=== PATIENT | male | born 1960 | race Caucasian/White ===

== ENCOUNTER 2020-12-16 13:34 | Emergency (ER) | payer BC ==
[~2020-12-16] VITALS: Ht 188 cm; Wt 99.8 kg
[2020-12-16 13:46] VITALS: BP 154/101
[2020-12-16] MEDS ORDERED: IBUP-1955 PO (16:41)
== END 2020-12-16 16:48 | disposition home or self-care (01) ==
LOC: ER 13:34
DX: M79.661 Pain in right lower leg (principal)
CPT/HCPCS: 93970-TC